=== PATIENT | female | born 1980 | race African-American/Black ===

== ENCOUNTER 2017-03-15 13:49 | Emergency (ER) | payer MEDICAID, MEDICARE ==
[~2017-03-15] VITALS: Ht 175.3 cm; Wt 59.0 kg
[~2017-03-15 13:49] MED LIST: FOLI1TAB6 PO; HYDR-4663 PO; MES400T PO; METR500T PO
[2017-03-15 14:38] LABS: Basophils # (auto) 0.1 uL; Basophils % (auto) 1.3 % (0.0-2.0); CONDITION Y; DEFINITIVE SEE PRINTOUT; Eosinophils # (auto) 0.2 uL; Eosinophils % (auto) 4.2 % (0.0-7.0); Hematocrit 36.8 % (36.0-46.0); Lymphocytes # (auto) 1.7 uL; Lymphocytes % (auto) 42.9 % (10.0-50.0); Mean Corpuscular Hemoglobin 26.8 pg (28.0-32.0); Mean Corpuscular Hgb Conc. 32.6 g/dL (32.0-36.0); Mean Corpuscular Volume 82.2 fL (80.0-100.0); Mean Platelet Volume 8.4 fL (7.4-10.4); Monocytes # (auto) 0.5 uL; Monocytes % (auto) 12.2 % (0.0-12.0); Neutrophils # (auto) 1.6 uL; Neutrophils % (auto) 39.4 % (37.0-80.0); Platelet Count (auto) 453 10^3/uL (140-450); Red Cell Distribution Width 14.5 % (11.6-16.0)
[2017-03-15 14:57] LABS: Albumin 2.8 g/dL (3.4-5.0); BUN/Creatinine Ratio 6.6; Bilirubin, Total 0.2 mg/dL (0.2-1.0); Calcium 8.1 mg/dL (8.5-10.1); Total Protein 7.6 g/dL (6.4-8.2)
[2017-03-15 15:00] LABS: Potassium 2.6 mmol/L (3.5-5.1)
[2017-03-15] MEDS ORDERED: SODIUM CHLORIDE 0.9% 1,000 ML IVB ONE (15:20)
[2017-03-15] MEDS ORDERED: PROMETHAZINE HCL 25 MG/ML 1ML IV PRN (15:30)
[2017-03-15] MEDS ORDERED: D5W/SOD CHL 0.9%/KCL 40MEQ 1,000 ML IV ONE (15:30)
[2017-03-15] MEDS ORDERED: DEXAMETHASONE SOD PHOS 4 MG/1ML SDV INJ IV ONE (15:30)
[2017-03-15 15:57] LABS: Magnesium 1.6 mg/dL (1.6-2.6)
[2017-03-15 16:03] LABS: Urine Bilirubin Negative (Negative); Urine Color Yellow (Yellow); Urine Glucose Normal (Normal); Urine Hyaline Cast FEW /lpf (0 - 2); Urine Ketone Negative (Negative); Urine Mucus FEW (None Seen); Urine Nitrite Negative (Negative); Urine RBC 5 /hpf (0 - 4); Urine Squamous Epithelial Cell FEW /hpf (<5)
[2017-03-15 16:08] LABS: Urine Blood 2+ /uL (Negative)
[2017-03-15 19:00] VITALS: BP 98/78
== END 2017-03-15 19:51 | disposition home or self-care (01) ==
LOC: EDBD 13:49 → ER 13:52
DX: K50.90 Crohn's disease, unspecified, without complications (principal); K52.9 Noninfective gastroenteritis and colitis, unspecified; E44.0 Moderate protein-calorie malnutrition; Z68.1 Body mass index [BMI] 19.9 or less, adult; E87.6 Hypokalemia; R80.9 Proteinuria, unspecified; R31.9 Hematuria, unspecified; Z79.899 Other long term (current) drug therapy
CPT/HCPCS: 36415; 80053; 81001; 83690; 83735; 84443; 84702; 85025; 96361; 96365; 96375; 99285; J1100; J7030

== ENCOUNTER 2017-10-02 23:18 | Emergency (ER) | payer MEDICARE, MEDICAID ==
[~2017-10-02] VITALS: Ht 165.1 cm; Wt 59.0 kg
[~2017-10-02 23:18] MED LIST changes: -HYDR-4663 PO; +HYDR-4683 PO
[2017-10-03 03:41] LABS: Hemoglobin 12.6 g/dL (12.2-16.2)
[2017-10-03 03:43] LABS: Hematocrit 38.9 % (36.0-46.0); Mean Corpuscular Hemoglobin 25.5 pg (28.0-32.0); Mean Corpuscular Hgb Conc. 32.4 g/dL (32.0-36.0); Mean Corpuscular Volume 78.7 fL (80.0-100.0); Platelet Count (auto) 381 10^3/uL (140-450); Red Blood Cells 4.95 10^6/uL (4.0-5.20); Red Cell Distribution Width 14.7 % (11.8-14.3)
[2017-10-03 03:45] LABS: White Blood Cell 4.1 10^3/uL (4.4-10.8)
[2017-10-03 03:47] LABS: Band Neutrophils % (manual) 0
[2017-10-03 03:48] LABS: Basophils % (manual) 0 (0.0-2.0); Blast Cells 0; Metamyelocytes % 0; Myelocytes % 0; Promyelocytes % 0
[2017-10-03 04:00] LABS: BUN/Creatinine Ratio 8.9; Calcium 8.5 mg/dL (8.5-10.1)
[2017-10-03 04:04] LABS: Bilirubin, Total 0.4 mg/dL (0.2-1.0); Total Protein 8.1 g/dL (6.4-8.2)
[2017-10-03] MEDS ORDERED: SODIUM CHLORIDE 0.9% 1,000 ML IV ONE (04:15)
[2017-10-03] MEDS ORDERED: ONDANSETRON HCL 4 MG/2 ML VIAL IV ONE (04:15)
[2017-10-03] MEDS ORDERED: MORPHINE SULFATE 4 MG/ML SYR/VIAL IV ONE ×2 (04:15→07:30)
[2017-10-03 04:38] LABS: Eosinophils % (manual) 2 (0-7); Lymphocytes % (manual) 39 (10.0-50.0); Monocytes % (manual) 20 (0-12); Reactive Lymphocytes 1
[2017-10-03] MEDS ORDERED: SODIUM CHLORIDE 0.9% 1,000 ML IVB ONE (07:17)
[2017-10-03] MEDS ORDERED: PROMETHAZINE HCL 25 MG/ML 1ML IV PRN (07:30)
[2017-10-03] MEDS ORDERED: DEXAMETHASONE SOD PHOS 4 MG/1ML SDV INJ IV ONE (07:30)
[2017-10-03 07:41] LABS: Urine Bacteria NONE SEEN /hpf (None Seen); Urine Blood Negative /uL (Negative); Urine Mucus FEW (None Seen); Urine WBC 1 /hpf (0 - 5)
[2017-10-03 15:12] VITALS: BP 96/63
[2017-10-03] MEDS ORDERED: HYDROcodone-ACET 5/325MG TAB PO ONE (15:15)
[2017-11-23] MEDS ORDERED: MESA400C PO (10:15)
== END 2017-10-03 15:41 | disposition home or self-care (01) ==
LOC: ER 23:18 → EDUNIT# 23:18 → EDBD 23:18 → ER 10-03 15:41
DX: R10.84 Generalized abdominal pain (principal); K50.90 Crohn's disease, unspecified, without complications; N83.201 Unspecified ovarian cyst, right side; E44.1 Mild protein-calorie malnutrition; Z68.21 Body mass index [BMI] 21.0-21.9, adult
CPT/HCPCS: 36415; 74176; 76856; 80053; 81001; 82150; 83690; 83735; 85007; 85027; 96361; 96374; 96375; 96376; 99285; J1100; J2270; J2405; J2550; J3490; J7030

== ENCOUNTER 2017-12-06 10:57 | Emergency (ER) | payer MEDICARE, MEDICAID ==
[~2017-12-06] VITALS: Ht 175.3 cm; Wt 59.0 kg
[~2017-12-06 10:57] MED LIST changes: -HYDR-4683 PO; -MES400T PO; +MESA400C PO; -METR500T PO
[2017-12-06 12:45] LABS: Red Cell Distribution Width 17.8 % (11.8-14.3)
[2017-12-06 12:46] LABS: Hematocrit 43.9 % (36.0-46.0); Hemoglobin 14.2 g/dL (12.2-16.2); Mean Corpuscular Hemoglobin 26.3 pg (28.0-32.0); Mean Corpuscular Hgb Conc. 32.2 g/dL (32.0-36.0); Mean Corpuscular Volume 81.6 fL (80.0-100.0); Platelet Count (auto) 488 10^3/uL (140-450); Red Blood Cells 5.38 10^6/uL (4.0-5.20); White Blood Cell 5.8 10^3/uL (4.4-10.8)
[2017-12-06 12:53] LABS: Band Neutrophils % (manual) 0; Basophils % (manual) 0 (0.0-2.0); Blast Cells 0; Metamyelocytes % 0; Myelocytes % 0; Promyelocytes % 0; Reactive Lymphocytes 0
[2017-12-06 13:01] LABS: Albumin 3.5 g/dL (3.4-5.0); BUN/Creatinine Ratio 8.5; Bilirubin, Total 0.4 mg/dL (0.2-1.0); Calcium 9.3 mg/dL (8.5-10.1); Potassium 3.6 mmol/L (3.5-5.1); Total Protein 9.7 g/dL (6.4-8.2)
[2017-12-06 13:58] LABS: Eosinophils % (manual) 2 (0-7); Lymphocytes % (manual) 28 (10.0-50.0); Monocytes % (manual) 24 (0-12)
[2017-12-06 15:56] LABS: Urine Bacteria FEW /hpf (None Seen); Urine Blood Negative /uL (Negative); Urine Mucus FEW (None Seen); Urine Specific Gravity 1.017 (1.001-1.035); Urine WBC 5 /hpf (0 - 5)
[2017-12-06] MEDS ORDERED: SODIUM CHLORIDE 0.9% 1,000 ML IVB ONE (16:12)
[2017-12-06] MEDS ORDERED: MORPHINE SULFATE 8mg/ml INJ SDV IV ONE (16:15)
[2017-12-06] MEDS ORDERED: DEXAMETHASONE SOD PHOS 4 MG/1ML SDV INJ IV ONE (16:15)
[2017-12-06] MEDS ORDERED: cefTRIAXone 1GM/10ml IVPUSH 10 ML IV ONE (16:15)
[2017-12-06] MEDS ORDERED: PROMETHAZINE HCL 25 MG/ML 1ML IV PRN (16:15)
[2017-12-06 17:46] VITALS: BP 108/72
== END 2017-12-06 18:06 | disposition home health service (06) ==
LOC: ER 10:57
DX: N39.0 Urinary tract infection, site not specified (principal); K50.90 Crohn's disease, unspecified, without complications; F17.210 Nicotine dependence, cigarettes, uncomplicated
CPT/HCPCS: 36415; 80053; 81001; 83690; 83735; 85007; 85027; 93005; 96361; 96374; 96375; 99285; J1100; J2270; J2550; J7030

== ENCOUNTER 2018-01-17 18:19 | Inpatient (IN) | payer MEDICARE, MEDICAID ==
[~2018-01-17] VITALS: Ht 177.8 cm; Wt 59.2 kg
[2018-01-17 19:35] LABS: White Blood Cell 4.6 10^3/uL (4.4-10.8)
[2018-01-17 19:36] LABS: Mean Corpuscular Hemoglobin 25.7 pg (28.0-32.0); Mean Corpuscular Hgb Conc. 32.5 g/dL (32.0-36.0); Platelet Count (auto) 444 10^3/uL (140-450); Red Blood Cells 4.68 10^6/uL (4.0-5.20)
[2018-01-17 19:37] LABS: Band Neutrophils % (manual) 0; Basophils % (manual) 0 (0.0-2.0); Blast Cells 0; Eosinophils % (manual) 0 (0-7); Metamyelocytes % 0; Myelocytes % 0; Promyelocytes % 0; Reactive Lymphocytes 0
[2018-01-17 19:46] LABS: Lymphocytes % (manual) 31 (10.0-50.0); Monocytes % (manual) 22 (0-12)
[2018-01-17 19:54] LABS: Albumin 2.6 g/dL (3.4-5.0); BUN/Creatinine Ratio 9.5; Bilirubin, Total 0.2 mg/dL (0.2-1.0); Calcium 8.7 mg/dL (8.5-10.1); Magnesium 1.8 mg/dL (1.6-2.6); Total Protein 8.2 g/dL (6.4-8.2)
[2018-01-17 20:02] LABS: Potassium 2.7 mmol/L (3.5-5.1)
[2018-01-17] MEDS ORDERED: SODIUM CHLORIDE 0.9% 1,000 ML IVB ONE (21:12)
[2018-01-17] MEDS ORDERED: ONDANSETRON HCL 4 MG/2 ML VIAL IV ONE (21:15)
[2018-01-17] MEDS ORDERED: MORPHINE SULFATE 8mg/ml INJ SDV IV ONE (21:15)
[2018-01-17 21:46] LABS: INR 1.13 (0.9-1.15); Partial Thromboplastin Time 34.2 sec (23.78-33.04)
[2018-01-17] MEDS: POTASSIUM CHL 20MEQ/100ML 100 ML IV SCH (22:57)
[2018-01-17] MEDS ORDERED: TEMAZEPAM 15 MG CAP PO PRN (23:00)
[2018-01-17] MEDS ORDERED: PANTOPRAZOLE 40 MG/10 ML VIAL IV ONE (23:00)
[2018-01-17] MEDS ORDERED: MORPHINE SULFATE 8mg/ml INJ SDV IV PRN (23:00)
[2018-01-17] MEDS ORDERED: ACETAMINOPHEN 325 MG TAB PO PRN (23:00)
[2018-01-18] VITALS (7 sets, daily range): BP systolic 100–121; BP diastolic 61–83
[2018-01-18] MEDS: SODIUM CHLORIDE 0.9% 1,000 ML IV SCH ×2 (00:15→14:09)
[2018-01-18] MEDS: HYDROcodone-ACET 5/325MG TAB PO PRN ×3 (00:51→19:53)
[2018-01-18] MEDS: POTASSIUM CHL 20MEQ/100ML 100 ML IV SCH (00:53)
[2018-01-18] MEDS: ONDANSETRON HCL 4 MG/2 ML VIAL IV PRN ×3 (01:34→19:53)
[2018-01-18] MEDS ORDERED: PRED1SOL8 PO (02:27)
[2018-01-18] MEDS ORDERED: HYDR-4683 PO (02:29)
[2018-01-18] MEDS ORDERED: TRAM50TA2 PO (02:30)
[2018-01-18] MEDS: metroNIDAZOLE 500MG/100ML 100 ML IV SCH ×3 (05:36→21:36)
[2018-01-18] MEDS: MESALAMINE 400mg Delayed Release Cap PO SCH ×4 (05:37→21:39)
[2018-01-18 06:41] LABS: Hemoglobin 9.2 g/dL (12.2-16.2)
[2018-01-18 06:45] LABS: Hematocrit 28.8 % (36.0-46.0); Mean Corpuscular Hemoglobin 26.2 pg (28.0-32.0); Mean Corpuscular Hgb Conc. 31.9 g/dL (32.0-36.0); Mean Corpuscular Volume 81.9 fL (80.0-100.0); Platelet Count (auto) 332 10^3/uL (140-450); Red Blood Cells 3.52 10^6/uL (4.0-5.20); Red Cell Distribution Width 16.5 % (11.8-14.3); White Blood Cell 5.4 10^3/uL (4.4-10.8)
[2018-01-18 06:57] LABS: Albumin 1.8 g/dL (3.4-5.0); Anion Gap 10 (5-15); Blood Urea Nitrogen 8 mg/dL (7-18); Calcium 7.7 mg/dL (8.5-10.1); Carbon Dioxide 21 mmol/L (21-32); Chloride 106 mmol/L (98-107); Glucose 88 mg/dL (74-106); Potassium 3.1 mmol/L (3.5-5.1); Sodium 137 mmol/L (136-145)
[2018-01-18 07:00] LABS: Aspartate Aminotransferase 7 U/L (15-37); BUN/Creatinine Ratio 9.4; GFR African American 96 mL/min; GFR Non-African American 80 mL/min
[2018-01-18 07:08] LABS: Basophils % (manual) 0 (0.0-2.0); Blast Cells 0; Eosinophils % (manual) 0 (0-7); Metamyelocytes % 0; Myelocytes % 0; Promyelocytes % 0; Reactive Lymphocytes 0
[2018-01-18 07:15] LABS: Alanine Aminotransferase < 6 U/L (13-56); Alkaline Phosphatase 63 U/L (45-117); Bilirubin, Total 0.2 mg/dL (0.2-1.0)
[2018-01-18] MEDS: ENOXAPARIN SOD 40 MG/0.4 ML SYRINGE SC SCH (08:26)
[2018-01-18] MEDS: PANTOPRAZOLE 40 MG/10 ML VIAL IV SCH (08:27)
[2018-01-18] MEDS ORDERED: cefTRIAXone 1GM/10ml IVPUSH 10 ML IV SCH (09:00)
[2018-01-18 10:19] LABS: Band Neutrophils % (manual) 4; Lymphocytes % (manual) 34 (10.0-50.0); Monocytes % (manual) 14 (0-12)
[2018-01-18] MEDS: predniSONE 20 MG TAB PO SCH (12:30)
[2018-01-18] MEDS ORDERED: POTASSIUM CHL 20 Meq TABLET PO SCH (12:30)
[2018-01-18] MEDS: POTASSIUM CHL 10% (20 MEQ/15ML) 15ml ORAL SOLN PO SCH (21:42)
[2018-01-18 22:51] LABS: Urine Blood Normal /uL (Negative); Urine Specific Gravity 1.016 (1.001-1.035)
[2018-01-18 22:52] LABS: Urine Bacteria FEW /hpf (None Seen); Urine Mucus FEW (None Seen); Urine WBC 16 /hpf (0 - 5)
[2018-01-18 22:53] LABS: Urine Hyaline Cast 1+ /lpf (0 - 2)
[2018-01-19] MEDS: SODIUM CHLORIDE 0.9% 1,000 ML IV SCH ×2 (02:17→13:44)
[2018-01-19 04:54] VITALS: BP 98/69
[2018-01-19] MEDS: MESALAMINE 400mg Delayed Release Cap PO SCH ×3 (05:23→21:25)
[2018-01-19] MEDS: metroNIDAZOLE 500MG/100ML 100 ML IV SCH ×3 (05:25→21:25)
[2018-01-19 07:38] VITALS: BP 101/69
[2018-01-19 09:00] VITALS: BP 101/69
[2018-01-19] MEDS: predniSONE 20 MG TAB PO SCH (09:10)
[2018-01-19] MEDS: PANTOPRAZOLE 40 MG/10 ML VIAL IV SCH (09:10)
[2018-01-19] MEDS: ONDANSETRON HCL 4 MG/2 ML VIAL IV PRN ×3 (09:10→20:04)
[2018-01-19] MEDS: HYDROcodone-ACET 5/325MG TAB PO PRN ×3 (09:11→20:05)
[2018-01-19] MEDS: POTASSIUM CHL 10% (20 MEQ/15ML) 15ml ORAL SOLN PO SCH (09:46)
[2018-01-19] MEDS: ENOXAPARIN SOD 40 MG/0.4 ML SYRINGE SC SCH (09:49)
[2018-01-19 09:56] LABS: Hemoglobin 10.5 g/dL (12.2-16.2); White Blood Cell 4.6 10^3/uL (4.4-10.8)
[2018-01-19 09:58] LABS: Hematocrit 33.3 % (36.0-46.0); Mean Corpuscular Hemoglobin 25.1 pg (28.0-32.0); Mean Corpuscular Hgb Conc. 31.5 g/dL (32.0-36.0); Mean Corpuscular Volume 79.8 fL (80.0-100.0); Platelet Count (auto) 374 10^3/uL (140-450); Red Blood Cells 4.17 10^6/uL (4.0-5.20); Red Cell Distribution Width 16.8 % (11.8-14.3)
[2018-01-19 10:17] LABS: BUN/Creatinine Ratio 6.3
[2018-01-19 10:21] LABS: Basophils % (manual) 0 (0.0-2.0); Blast Cells 0; Eosinophils % (manual) 0 (0-7); Metamyelocytes % 0; Myelocytes % 0; Promyelocytes % 0; Reactive Lymphocytes 0
[2018-01-19 10:44] LABS: Band Neutrophils % (manual) 2; Lymphocytes % (manual) 25 (10.0-50.0); Monocytes % (manual) 17 (0-12)
[2018-01-19 13:00] VITALS: BP 102/74
[2018-01-19 16:40] VITALS: BP 103/76
[2018-01-19 22:00] VITALS: BP 130/95
[2018-01-20] MEDS: SODIUM CHLORIDE 0.9% 1,000 ML IV SCH (04:24)
[2018-01-20 05:00] VITALS: BP 111/79
[2018-01-20] MEDS: MESALAMINE 400mg Delayed Release Cap PO SCH ×3 (05:46→21:35)
[2018-01-20] MEDS: metroNIDAZOLE 500MG/100ML 100 ML IV SCH ×3 (05:47→21:35)
[2018-01-20 06:24] LABS: Hematocrit 27.1 % (36.0-46.0); Hemoglobin 8.9 g/dL (12.2-16.2); Mean Corpuscular Hemoglobin 26.1 pg (28.0-32.0); Mean Corpuscular Hgb Conc. 32.8 g/dL (32.0-36.0); Mean Corpuscular Volume 79.5 fL (80.0-100.0); Platelet Count (auto) 339 10^3/uL (140-450); Red Blood Cells 3.41 10^6/uL (4.0-5.20); Red Cell Distribution Width 16.1 % (11.8-14.3); White Blood Cell 5.4 10^3/uL (4.4-10.8)
[2018-01-20 06:28] LABS: Calcium 7.9 mg/dL (8.5-10.1); Magnesium 1.7 mg/dL (1.6-2.6); Potassium 3.7 mmol/L (3.5-5.1)
[2018-01-20 06:30] LABS: BUN/Creatinine Ratio 5.3
[2018-01-20 06:39] LABS: Band Neutrophils % (manual) 0; Basophils % (manual) 0 (0.0-2.0); Blast Cells 0; Eosinophils % (manual) 0 (0-7); Metamyelocytes % 0; Myelocytes % 0; Promyelocytes % 0; Reactive Lymphocytes 0
[2018-01-20 08:13] VITALS: BP 102/73
[2018-01-20] MEDS: ONDANSETRON HCL 4 MG/2 ML VIAL IV PRN (08:23)
[2018-01-20] MEDS: HYDROcodone-ACET 5/325MG TAB PO PRN (08:23)
[2018-01-20 08:37] LABS: Lymphocytes % (manual) 31 (10.0-50.0); Monocytes % (manual) 22 (0-12)
[2018-01-20] MEDS: ENOXAPARIN SOD 40 MG/0.4 ML SYRINGE SC SCH (11:32)
[2018-01-20] MEDS: predniSONE 20 MG TAB PO SCH (11:32)
[2018-01-20] MEDS: PANTOPRAZOLE 40 MG/10 ML VIAL IV SCH (11:32)
[2018-01-20 12:19] VITALS: BP 110/80
[2018-01-20] MEDS ORDERED: cefTRIAXone 1GM/10ml IVPUSH 10 ML IV ONE (13:30)
[2018-01-20 16:39] VITALS: BP 106/81
[2018-01-20] MEDS: PRO-STAT 64 30ML PO SCH (17:34)
[2018-01-20] MEDS: Boost Breeze 8 Ounces PO SCH (17:34)
[2018-01-20] MEDS: metroNIDAZOLE 500 MG TAB PO SCH ×2 (17:34→23:57)
[2018-01-20] MEDS: HYDROcodone-ACET 10/325MG TAB PO PRN ×2 (17:35→21:35)
[2018-01-20 20:00] VITALS: BP 107/75
[2018-01-20 22:00] VITALS: BP 107/75
[2018-01-21] MEDS: HYDROcodone-ACET 10/325MG TAB PO PRN (04:54)
[2018-01-21 05:00] VITALS: BP 116/88
[2018-01-21] MEDS: MESALAMINE 400mg Delayed Release Cap PO SCH ×2 (05:36→15:47)
[2018-01-21] MEDS: metroNIDAZOLE 500 MG TAB PO SCH ×3 (05:36→18:23)
[2018-01-21 07:03] LABS: Hemoglobin 9.4 g/dL (12.2-16.2); Mean Corpuscular Hgb Conc. 32.3 g/dL (32.0-36.0); Red Blood Cells 3.64 10^6/uL (4.0-5.20)
[2018-01-21 07:07] LABS: Hematocrit 28.9 % (36.0-46.0); Mean Corpuscular Hemoglobin 25.7 pg (28.0-32.0); Mean Corpuscular Volume 79.5 fL (80.0-100.0); Platelet Count (auto) 393 10^3/uL (140-450); Red Cell Distribution Width 16.4 % (11.8-14.3); White Blood Cell 4.4 10^3/uL (4.4-10.8)
[2018-01-21 07:13] LABS: BUN/Creatinine Ratio 5.1; Calcium 7.9 mg/dL (8.5-10.1); Potassium 3.4 mmol/L (3.5-5.1)
[2018-01-21 07:34] LABS: Band Neutrophils % (manual) 0; Basophils % (manual) 0 (0.0-2.0); Blast Cells 0; Eosinophils % (manual) 0 (0-7); Metamyelocytes % 0; Myelocytes % 0; Promyelocytes % 0
[2018-01-21] MEDS: PRO-STAT 64 30ML PO SCH ×2 (08:00→18:23)
[2018-01-21] MEDS: Boost Breeze 8 Ounces PO SCH ×3 (08:00→18:23)
[2018-01-21 08:59] VITALS: BP 109/71
[2018-01-21] MEDS ORDERED: cefTRIAXone 1GM/10ml IVPUSH 10 ML IV SCH (09:00)
[2018-01-21] MEDS: predniSONE 20 MG TAB PO SCH (09:57)
[2018-01-21] MEDS: PANTOPRAZOLE 40 MG/10 ML VIAL IV SCH (09:57)
[2018-01-21 11:56] LABS: Lymphocytes % (manual) 26 (10.0-50.0); Monocytes % (manual) 18 (0-12); Reactive Lymphocytes 1
[2018-01-21 12:45] VITALS: BP 107/78
[2018-01-21 17:11] VITALS: BP 107/71
== END 2018-01-21 18:45 | disposition home or self-care (01) | DRG 371 ==
LOC: EDUNIT# 18:19 → EDBD 18:19 → ER 18:19 → OVERFLOW 18:20 → WEST WING 23:48
PROVIDERS: ADMIT Nurse Practitioner; ATTEND Family Medicine
DX: A04.72 Enterocolitis due to Clostridium difficile, not specified as recurrent (principal); E43 Unspecified severe protein-calorie malnutrition; K50.90 Crohn's disease, unspecified, without complications; Z68.1 Body mass index [BMI] 19.9 or less, adult; E87.6 Hypokalemia; K52.9 Noninfective gastroenteritis and colitis, unspecified; E86.0 Dehydration; F17.210 Nicotine dependence, cigarettes, uncomplicated; K56.41 Fecal impaction; Z82.49 Family history of ischemic heart disease and other diseases of the circulatory system; Z80.9 Family history of malignant neoplasm, unspecified
CPT/HCPCS: 36415; 74176; 80048; 80053; 81001; 81025; 82150; 83690; 83735; 85007; 85027; 85610; 85730; 87086; 87493; 93005; 96361; 96374; 96375; C9113; J2405; J3480; J3490